=== PATIENT | female | born 1995 | race Caucasian/White ===

== ENCOUNTER → 2019-11-30 13:00 | Outpatient (BNVA) | payer MEDICAID, SELFPAY | PROVIDERS: Visit Provider Obstetrics & Gynecology | DX: Z32.01 Encounter for pregnancy test, result positive (principal) | CPT/HCPCS: 81025; 84702 ==

== ENCOUNTER 2020-03-22 22:56 | Inpatient (IN) | payer MEDICAID, SELFPAY ==
--- NOTE | 2020-03-22 23:04 | P.HP_ITS ---
Providers/Chief Complaint Admitting Physician: Quincy Pyle MD Primary SURVEY RESEARCH TEACHER: None Primary Care Provider: None Chief Complaint: post /delivered HPI SURVEY RESEARCH TEACHER History of Present Illness Viki Gill is a 24 year old female 3 para 2-0-0-2 with an unknown gestational age but felt to be approximately term based on a 28-week ultrasound for the patient. The patient had lived in [place], then [place], in [facility], and again in [place] during her . She states that she has had no problems during her . Around noon today, she began having contractions and waited for to come home to go to the hospital in [place]. Once in the hospital, she was found to be 6 cm dilated percent effaced. She then quickly progressed to complete and delivered in the hospital. She is and transported to our facility for definitive care. The bleeding was mild in the hospital. The physician did not do an exam to check for lacerations. The baby appeared to be healthy and term. Apgars were 9 and 9. Weight was not obtained on the baby. Their transport per EMS was unremarkable. Review of Systems General: Reports: 10 or more systems reviewed and unremarkable except in HPI and below Const: Reports: fatigue; Denies: fever(s) Eyes: Denies: change in vision Card: Denies: chest pain GI: Reports: heartburn Musc: Reports: back pain Juan Carlos/Lymph: Denies: easy bruising Medications/Allergies Allergies Allergy/AdvReac Type Severity Reaction Status Date / Time Sulfa (Sulfonamide Allergy ALGY-Swell Verified 11/30/19 15:27 Antibiotics) Lip/Tongue/Throat amoxicillin AdvReac ADR-Vomitin Verified 11/30/19 15:27 g PFSH SURVEY RESEARCH TEACHER PFSH: Family History Denies family history of Colon cancer Ovarian cancer Diabetes Heart disease Breast cancer Bleeding disorder Hypertension Uterine cancer Thyroid disease Stroke Social History (Updated 12/09/19 @ 12:40 by Mariel Grayson) Additional social history: - Tobacco use: Alcohol use: Drug use: Physical Exam Const: COMMON NORMALS: patient oriented x3 and alert HENMT: COMMON NORMALS: moist oral mucous membranes HEAD & SCALP: normal to inspection Chest: COMMONS NORMALS: normal inspection of the chest (Baby was breast- feeding on her left breast on arrival at the hospital) Resp: COMMON NORMALS: clear to auscultation bilaterally AUSCULTATION: clear to auscultation bilaterally Cardio: COMMON NORMALS: regular rate and regular rhythm RATE: regular rate RHYTHM: regular rhythm GI: INSPECTION: Yes normal to inspection and Yes other (Gravid) Extremity: COMMON NORMALS: normal to inspection GENERAL: Yes edema (Trace) Neuro: COMMON NORMALS: patient oriented x3, moves all extremities and no sensory deficits noted SENSORIUM/ORIENTATION: Yes alert Psych: COMMON NORMALS: mental status grossly normal Skin: COMMON NORMALS: no rashes or lesions noted GENERAL SKIN EXAM: no rashes or lesions noted A&P Assessment and plan (1) Term : Status: Acute (2) care insufficient: Status: Acute (3) Status post vaginal delivery: At this time the patient appears to be doing very well. We will do a full panel on her. If she continues to do well, I anticipate she will build to be discharged home in the next 1 to 2 days. Status: Acute Attestations Medical Necessity Statement*: Routine care Coding Level of Care Code Acute Supervisor Lump Room for Chg Fwd Diagnoses Term Z34.90 care insufficient O09.30 Status post vaginal delivery
[2020-03-22 23:40] VITALS: BP 113/71; PULSE 78; RESP 16; TEMP 36.8
[2020-03-23] MEDS: HYDROcodone-acetaminophen 5-325 mg Tablet PO (00:02)
[2020-03-23 00:19] VITALS: BP 112/70; PULSE 73; RESP 16; TEMP 36.9
[2020-03-23 01:36] LABS: Hepatitis B Surface Antigen Non-Reactive (Nonreactive)
[2020-03-23 01:36] LABS: Amphetamines Screen Urine Negative (Negative); Barbiturates Screen Urine Negative (Negative); Benzodiazepines Screen Urine Negative (Negative); Cocaine Screen Urine Negative (Negative); Opiate Screen Urine Negative (Negative); PCP Screen Urine Negative (Negative); THC Screen Urine Negative (Negative)
[2020-03-23 01:37] LABS: Rubella IgG 55.3 IU/mL (0.0-10.0)
[2020-03-23 01:39] LABS: HIV 1 & 2 Antibody Non-Reactive (Non-Reactiv); HIV 1 & 2 Antigen Non-Reactive (Non-Reactiv)
[2020-03-23 01:40] LABS: Rapid Plasma Reagin Syphilis Nonreactive (Nonreactive)
[2020-03-23 04:35] VITALS: BP 100/63; PULSE 103; RESP 17; TEMP 37.1
--- NOTE | 2020-03-23 07:26 | PM.OBGYPN ---
ANESTHESIOLOGIST ATTENDING Subjective Subjective: Interval history: The patient has had an unremarkable night. Her bleeding has been minimal. She has breast-fed well. Her pain is well controlled. There have been no concerns. Vitals/I&O/Wt Last Vital Signs Temp 98.7 F 03/23/20 04:35 Pulse 103 H 03/23/20 04:35 Resp 17 03/23/20 04:35 BP 100/63 03/23/20 04:35 03/22/20 03/23/20 03/23/20 22:59 06:59 14:59 Output Total 1800 / 1800 Balance -1800 / -1800 Physical Exam Narrative: EXAM NARRATIVE: The patient is alert. She appears comfortable. Her heart has a regular rate and rhythm with no murmurs appreciated. Lungs are clear to auscultation bilaterally. Her fundus is firm and below the umbilicus. Data Other Labs: Her drug screen was negative. Her RPR was nonreactive. Her hepatitis B antigen was nonreactive. Her HIV antibody was nonreactive. Rubella status was 55.3 Attestations Medical Necessity Statement*: Routine care. This patient be discharged home tomorrow morning Coding Level of Care Code Acute Driving Teacher for Brooklyn Trammell
[2020-03-23 07:37] LABS: Hemoglobin 9.9 g/dL (11.5-15.3); Mean Corpuscular HGB Conc 30.9 g/dL (30.0-36.0); Mean Corpuscular Hemoglobin 29.8 pg (28.0-34.0); Mean Corpuscular Volume 96.4 fL (81-99); Mean Platelet Volume 11.3 fL (7.4-10.4); Platelet Count 186 10^3/cmm (130-400); Red Blood Count 3.32 10^6/uL (4.1-5.3); White Blood Count 13.6 10^3/uL (4.0-10.0)
[2020-03-23] MEDS: docusate sodium 100 mg Capsule PO (08:36)
[2020-03-23] MEDS: prenatal vitamin Capsule 1 CAP PO (08:36)
[2020-03-23] MEDS: ibuprofen 800 mg tablet PO ×2 (08:36→20:33)
[2020-03-23 09:37] VITALS: BP 118/77; PULSE 91; RESP 16; TEMP 36.8
[2020-03-23 13:14] VITALS: BP 98/68; PULSE 86; RESP 17; TEMP 36.7
[2020-03-23 16:28] VITALS: BP 123/78; PULSE 81; RESP 16; TEMP 36.6
[2020-03-23 23:17] VITALS: BP 111/72; PULSE 86; RESP 16; TEMP 36.6; O2SAT 98
[2020-03-24 07:12] LABS: Hematocrit 31.6 % (37.0-47.0); Hemoglobin 9.9 g/dL (11.5-15.3); Mean Corpuscular HGB Conc 31.3 g/dL (30.0-36.0); Mean Corpuscular Hemoglobin 30.1 pg (28.0-34.0); Mean Platelet Volume 12.1 fL (7.4-10.4); Platelet Count 184 10^3/cmm (130-400); Red Blood Count 3.29 10^6/uL (4.1-5.3); White Blood Count 13.5 10^3/uL (4.0-10.0)
--- NOTE | 2020-03-24 08:22 | PC.NURSE ---
This mom's baby is not able to breastfeed at present. Reviewed expressing milk. She knows how to hand express and has used a breastpump in the past. Provided a hand pump, literature and help to get started. She said she could express on her own and at this time did not need my help. Since baby has not fed through the night I encouraged her to try to express as soon as possible.
[2020-03-24] MEDS: prenatal vitamin Capsule 1 CAP PO (09:21)
[2020-03-24] MEDS: docusate sodium 100 mg Capsule PO (09:21)
[2020-03-24] MEDS: ibuprofen 800 mg tablet PO (09:21)
[2020-03-24 09:51] VITALS: BP 104/78; PULSE 100; RESP 16; TEMP 36.7; O2SAT 98
--- NOTE | 2020-03-26 20:40 | P.DS_ITS ---
Discharge Providers EDUCATIONAL/DEVELOPMENT ASSISTANT Date of Admission: 03/22/20 22:56 Date of Discharge: 03/26/20 Attending Provider at Admission: Quincy Pyle MD Attending Provider at Discharge: Quincy Pyle MD Diagnoses at Discharge Discharge Diagnosis (1) Term : Status: Acute (2) care insufficient: Status: Acute (3) Status post vaginal delivery: Status: Acute Reason for Visit Reason for Visit: post /delivered Hospital Course Hospital Course The patient is a 24-year-old 3 patient who presented to the hospital via ambulance from [facility] in [place] after having an unremarkable delivery of a healthy appearing male infant. She had had almost no care as mentioned earlier. During her hospital stay there were no problems. Her bleeding was within normal limits. Her pain was well controlled. She breast-fed without difficulty. Unfortunately on the final day of the hospital stay it was determined that her infant need to be transferred to another facility for optimal care. As result she wanted to go home immediately. And I discharged her home. Physical Exam Narrative: EXAM NARRATIVE: This exam is from the day prior to discharge as the patient desired to be discharged immediately, and I was unavailable to come to the hospital immediately. The patient is alert. She appears comfortable. Her heart has a regular rate and rhythm with no murmurs appreciated. Lungs are clear to auscultation bilaterally. Her fundus is firm and below the umbilicus. Discharge Data Data Completed and Pending: Pending at discharge Category Date Time Status Miscellaneous Jessica t Stat Lab 03/23/20 00:45 Received Addt'l Data from Hospital Stay: Prior to discharge the patient's white blood count was 13.5 with a hemoglobin of 9.9 and a platelet count of 184. Her drug screen was negative. Her RPR, hepatitis B, HIV, rubella were all within normal limits. Vitals: Last Vital Signs Temp 98.0 F 03/24/20 09:51 Pulse 100 03/24/20 09:51 Resp 16 03/24/20 09:51 BP 104/78 03/24/20 09:51 Pulse Ox 98 03/24/20 09:51 Discharge Plan Discharge Patient Disposition: Home Prescriptions: No Action No Known Home Medications RF: 0 Discharge Orders: Discharge Order (Routine); Ordered 03/24/20 Ordered By: Quincy Pyle Referrals: Quincy Pyle MD [Physician] - 05/04/20 1:15 pm (* Your 6 week follow up is with Dr. Pyle on May 04 at 1:15pm. ) Discharge Diet: Regular Discharge Activity: Limit activity as instructed Patient Instructions: Vaginal Delivery (DC), Pre-eclampsia and Eclampsia (DC), Bleeding (DC), OB Discharge Report, OB Food/Drug Interaction Guide, OB Home Care, OB Proud Parent Packet Discharge Attestations EDUCATIONAL/DEVELOPMENT ASSISTANT Time Spent in Discharge Care*: less than 30 min (I discussed discharge information the day prior to discharge) Specific Discharge Activities: Specific discharge activities: educating patient Coding Level of Care Code Acute Casualty Insurance Claim Adjuster for Chg Fwd Diagnoses Term Z34.90 care insufficient O09.30 Status post vaginal delivery
== END 2020-03-24 10:34 | disposition home or self-care (01) | DRG 776 ==
LOC: OPOB 22:56 → OBGYN 22:56
PROVIDERS: Admitting Provider Family Medicine; Visit Provider Family Medicine
DX: Z39.0 Encounter for care and examination of mother immediately after delivery (principal)
CPT/HCPCS: 12345; 36415; 80306; 85027; 86592; 86762; 86850; 86900; 87340; 87491; 87591; 87806

== ENCOUNTER 2021-07-28 12:58 | Outpatient (CLI) | payer MEDICAID, SELFPAY ==
--- NOTE | 2021-07-28 13:07 | MR_ITS ---
WS: [id number] MRI BRAIN WITHOUT CONTRAST HISTORY: NON INTRACTABLE HEADACHE COMPARISON: None available. TECHNIQUE: Diffusion imaging, multiplanar T1, T2 and FLAIR imaging obtained. Patient denied IV contra st. No evidence for acute infarct or hemorrhage. Mejia-white matter differentiation is normal. No remote or acute infarcts are volume loss. Asymmetric ventricles with the RIGHT ventricle being larger is a normal variant. No inferior displacement of cerebellar tonsils. The sella turcica and pituitary gland are unremarkabl e. Dural venous sinuses and [place] demonstrate no abnormality on this unenhanced studies. Paranasal sinuses: Clear. Mastoid air cells: Normal. Calvarium and scalp: Intact. MR/MR head wo con* [id number] IMPRESSION: 1. Normal brain. 2. No postcontrast imaging performed at the patient's request.
== END 2021-07-28 12:59 | disposition home or self-care (01) ==
PROVIDERS: Visit Provider Nurse Practitioner Family
DX: R51.9 Headache, unspecified (principal)
CPT/HCPCS: 70551

== ENCOUNTER → 2022-02-20 10:00 | Outpatient (BNVA) | payer MEDICAID, SELFPAY | PROVIDERS: Visit Provider Nurse Practitioner Women's Health | DX: N92.6 Irregular menstruation, unspecified (principal) | CPT/HCPCS: 81000; 81025 ==

== ENCOUNTER → 2022-03-15 11:50 | Outpatient (BNVA) | payer MEDICAID, SELFPAY | PROVIDERS: Visit Provider Nurse Practitioner Women's Health | DX: Z34.91 Encounter for supervision of normal pregnancy, unspecified, first trimester (principal); Z3A.12 12 weeks gestation of pregnancy | CPT/HCPCS: 76801 ==

== ENCOUNTER → 2022-03-26 15:50 | Outpatient (BNVA) | payer MEDICAID, SELFPAY | PROVIDERS: Visit Provider Obstetrics & Gynecology | DX: Z34.80 Encounter for supervision of other normal pregnancy, unspecified trimester (principal); O09.299 Supervision of pregnancy with other poor reproductive or obstetric history, unspecified trimester; Z86.32 Personal history of gestational diabetes; I49.8 Other specified cardiac arrhythmias | CPT/HCPCS: 80307; 81003; 85027; 86762; 86803; 86850; 86900; 87086; 87340; 87491; 87591; 87661; 87806; 88175 ==

== ENCOUNTER → 2022-04-19 13:25 | Outpatient (BNVA) | payer MEDICAID, SELFPAY | PROVIDERS: Visit Provider Nurse Practitioner Women's Health | DX: Z34.80 Encounter for supervision of other normal pregnancy, unspecified trimester (principal) | CPT/HCPCS: 81000; 82950 ==

== ENCOUNTER → 2022-04-20 14:46 | Outpatient (BNVA) | payer MEDICAID, SELFPAY | PROVIDERS: Visit Provider Nurse Practitioner Women's Health | DX: Z34.80 Encounter for supervision of other normal pregnancy, unspecified trimester (principal) | CPT/HCPCS: 82105; 86592 ==

== ENCOUNTER → 2022-05-23 14:15 | Outpatient (BNVA) | payer MEDICAID, SELFPAY | PROVIDERS: Visit Provider Obstetrics & Gynecology | DX: Z34.92 Encounter for supervision of normal pregnancy, unspecified, second trimester (principal); Z3A.21 21 weeks gestation of pregnancy | CPT/HCPCS: 76805 ==

== ENCOUNTER → 2022-07-27 13:50 | Outpatient (BNVA) | payer MEDICAID, SELFPAY | PROVIDERS: Visit Provider Obstetrics & Gynecology | DX: Z34.80 Encounter for supervision of other normal pregnancy, unspecified trimester (principal); Z3A.00 Weeks of gestation of pregnancy not specified | CPT/HCPCS: 81000 ==

== ENCOUNTER 2022-08-17 11:05 | Outpatient (CLI) | payer MEDICAID, SELFPAY ==
--- NOTE | 2022-08-17 12:45 | US_ITS ---
WS: [id number] LIMITED OBSTETRICAL ULTRASOUND HISTORY: Z34.80 - Encounter for supervision of other normal , growth. COMPARISON: 03/15/2022 a nd 05/23/2022 Presentation: Vertex. Cervix: Closed and normal length. Placenta: Anterior, no previa or abruption. Grade: 2 HEART: FHR of 138 BPM. measurements: BPD = 8.6 cm = 34w6d; 73rd percentile HC = 31.4 cm = 35w2d; 45th percentile AC = 29.2 cm = 33w1d; 30th percentile FL = 6.5 cm = 33w3d; 26th percentile Normal visualized pockets of amniotic fluid. EFW: 2239 g; 52nd percentile AGA by ultrasound: 34w1d REINA by ultrasound: 09/27/2022 US/US OB limited 14181 IMPRESSION: 1. Single intrauterine gestation of 34 weeks 1 day with an EDC of 09/27/2022. 2. Appropriate growth since the first trimester ultrasound of 03/15/2022. 3. No growth asymmetry. 4. weight at the 52nd percentile for age.
== END 2022-08-17 11:06 | disposition home or self-care (01) ==
LOC: RAD 11:11
PROVIDERS: Visit Provider Obstetrics & Gynecology
DX: Z34.80 Encounter for supervision of other normal pregnancy, unspecified trimester (principal)
CPT/HCPCS: 76815; 80307; 81000; 85025; 86850

== ENCOUNTER 2022-08-24 10:43 | Outpatient (CLI) | payer MEDICAID, SELFPAY ==
[2022-08-24] VITALS (13 sets, daily range): BP systolic 96–103; BP diastolic 59–66; PULSE 93–114; O2SAT 98–99; BMI 22.2
--- NOTE | 2022-08-24 11:04 | US_ITS ---
WS: [id number] BIOPHYSICAL PROFILE AMNIOTIC FLUID HISTORY: Syncope episodes COMPARISON: 08/17/2022 position: Vertex. Cardiac activity: 120 bpm. Cervix: Obscured by the head. Placenta: Anterior, no previa or abruption. Placenta grade: 2 Parameters are as follows: Breathin Movement: 2 Tone: 2 Fluid volume: 2 Amniotic Fluid Index: 17.5 cm. US/US OB BPP wo NST 14714 IMPRESSION: 1. Biophysical profile score: 8/8. 2. Normal cardiac activity.
[2022-08-24 11:34] LABS: Basophils # 0.1 10^3/uL (0.0-0.1); Basophils % 0.5 %; Eosinophils # 0.2 10^3/uL (0.0-0.8); Eosinophils % 1.8 %; Hematocrit 28.3 % (37.0-47.0); Lymphocytes % 19.6 %; Mean Corpuscular HGB Conc 31.8 g/dL (30.0-36.0); Mean Corpuscular Hemoglobin 29.5 pg (28.0-34.0); Mean Corpuscular Volume 92.8 fl (81-99); Mean Platelet Volume 10.2 fL (7.4-10.4); Monocytes # 0.8 10^3/uL (0.2-0.9); Monocytes % 7.6 %; Neutrophils # 7.13 10^3/uL (1.8-7.7); Neutrophils % 69.4 %; Nucleated Red Blood Cells % 0 %; Platelet Count 239 10^3/cmm (130-400); Red Blood Count 3.05 10^6/uL (4.1-5.3); Red Cell Distribution Width 13.3 % (12.1-15.1); White Blood Count 10.3 10^3/uL (4.0-10.0)
--- NOTE | 2022-08-24 11:57 | ECG_ITS ---
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 Measurements Intervals [place] Rate: 101 P: 50 HI: 112 QRS: 45 QRSD: 84 T: 33 QT: 324 QTc: 420 Interpretive Statements SINUS TACHYCARDIA WITH SHORT HI INTERVAL ABNORMAL RHYTHM ECG No previous ECG available for comparison Electronically Signed On 08-24-2022 12:17:26 CDT by Ignacio Matamoros M.D. [id number]
[2022-08-24 12:34] LABS: Ferritin 8 ng/mL (15-150); Iron 76 ug/dL (37-145); Percent Saturation 19.2 % (20-50); Total Iron Binding Capacity 395 mcg/dl; Unsaturated Iron Binding 319 ug/dL (112-347)
== END 2022-08-24 13:30 | disposition home or self-care (01) ==
LOC: OPOB 10:51 → OBGYN 10:52
PROVIDERS: Visit Provider Obstetrics & Gynecology
DX: O26.899 Other specified pregnancy related conditions, unspecified trimester (principal); R55 Syncope and collapse; R00.0 Tachycardia, unspecified; Z3A.00 Weeks of gestation of pregnancy not specified
CPT/HCPCS: 36415; 59025; 76819; 81000; 82728; 83540; 83550; 85025; 93005; 99211

== ENCOUNTER 2022-09-02 19:19 | Outpatient (CLI) | payer MEDICAID, SELFPAY ==
[2022-09-02] VITALS (11 sets, daily range): BP systolic 101–119; BP diastolic 57–76; PULSE 76–91; RESP 16–17; TEMP 35.8–36.1; BMI 23.4
[2022-09-02 20:23] LABS: Nitrazine Paper, PH Negative
== END 2022-09-02 22:04 | disposition home or self-care (01) ==
LOC: OPOB 19:20 → OBGYN 19:21
PROVIDERS: Visit Provider Obstetrics & Gynecology
DX: O26.893 Other specified pregnancy related conditions, third trimester (principal); G90.A Postural orthostatic tachycardia syndrome [POTS]; Z3A.36 36 weeks gestation of pregnancy
CPT/HCPCS: 59025; 83986; 99211

== ENCOUNTER 2022-09-04 19:36 | Outpatient (CLI) | payer MEDICAID, SELFPAY ==
[2022-09-04] VITALS (18 sets, daily range): BP systolic 82–110; BP diastolic 43–70; PULSE 78–114; RESP 16; TEMP 36.2–36.4; BMI 22.6
[2022-09-04 20:52] LABS: Basophils % 0.3 %; Eosinophils # 0.2 10^3/uL (0.0-0.8); Eosinophils % 2.3 %; Hematocrit 27.2 % (37.0-47.0); Hemoglobin 8.6 g/dL (11.5-15.3); Lymphocytes # 2.7 10^3/uL (0.8-4.8); Lymphocytes % 26.8 %; Mean Corpuscular HGB Conc 31.6 g/dL (30.0-36.0); Mean Corpuscular Volume 91.6 fl (81-99); Mean Platelet Volume 10.5 fL (7.4-10.4); Monocytes # 0.8 10^3/uL (0.2-0.9); Monocytes % 7.7 %; Neutrophils # 6.35 10^3/uL (1.8-7.7); Neutrophils % 62.2 %; Nucleated Red Blood Cells % 0 %; Platelet Count 230 10^3/cmm (130-400); Red Blood Count 2.97 10^6/uL (4.1-5.3); Red Cell Distribution Width 13.6 % (12.1-15.1); White Blood Count 10.2 10^3/uL (4.0-10.0)
[2022-09-04 21:09] LABS: Alanine Aminotransferase < 5 U/L (0-33); Albumin Level 3.4 g/dL (3.5-5.2); Alkaline Phosphatase 129 U/L (35-105); Anion Gap 14.7 (5-19); Aspartate Amino Transferase 10 U/L (0-32); Blood Urea Nitrogen 5 mg/dL (6-20); Calcium 8.7 mg/dL (8.5-10.5); Carbon Dioxide 23 mmol/L (22-29); Chloride 100 mmol/L (98-107); Globulin 2.6 g/dL (1.3-4.6); Glomerular Filtration Rate 268.9 mL/min (90-130); Glucose 100 mg/dL (65-115); Osmolality Calculated 275 mOsm/kg (285-295); Potassium 3.7 mmol/L (3.5-5.1); Sodium 134 mmol/L (136-145); Total Bilirubin 0.2 mg/dL (0.15-1.2)
[2022-09-04] MEDS: lactated ringers 1,000 ML 999 ML IV (21:45)
--- NOTE | 2022-09-04 22:52 | P.PN_ITS ---
Subjective Subjective: called to see patient. The patients partner requests to speak with a physician. Labs show that the patient is profoundly anemic. her partner states that she is having an increase in episodes of loss of consciousness. I explained that being anemic can also cause these same symptoms. i recommended that she receive a venofer infusion tonight, tomorrow and again on . Initially, she refu sed. We discussed that we can infuse over a longer time and the iron should make her feel better. She has agreed to have the infusion. Vitals/I&O/Wt Last Vital Signs Temp 97.5 F L 09/04/22 20:46 Pulse 93 09/04/22 22:40 Resp 16 09/04/22 20:42 BP 100/59 09/04/22 22:40 Weight last 48 hrs Weight 116 lb Data 09/04/22 20:44 09/04/22 20:44 A&P Assessment and plan (1) Anemia affecting in third trimester: 200 mg of venofer infusion today repeat the next two-three days Attestations Medical Necessity Statement*: The patient will be going home, 30 minutes post infusion Coding Level of Care Code Acute Code for Chg Fwd Diagnoses Anemia affecting in third trimester O99.013
[2022-09-04] MEDS: iron sucrose 200 MG in sodium chloride 0.9% (100 ml) 100 ML 220 MG IV (22:57)
[2022-09-05 00:13] VITALS: BP 84/47; PULSE 83
[2022-09-05 00:26] VITALS: BP 84/48; PULSE 86
[2022-09-05 00:43] VITALS: BP 112/55; PULSE 88
[2022-09-05 01:06] VITALS: RESP 16
== END 2022-09-05 01:25 | disposition home or self-care (01) ==
LOC: OPOB 19:46 → OBGYN 19:48
PROVIDERS: Visit Provider Obstetrics & Gynecology
DX: O26.893 Other specified pregnancy related conditions, third trimester (principal); G90.A Postural orthostatic tachycardia syndrome [POTS]; O99.013 Anemia complicating pregnancy, third trimester; D50.9 Iron deficiency anemia, unspecified; Z3A.36 36 weeks gestation of pregnancy
CPT/HCPCS: 36415; 59025; 80053; 81000; 85025; 87081; 99211; G0378; J1756; J7120

== ENCOUNTER 2022-09-05 16:30 | Outpatient (CLI) | payer MEDICAID, SELFPAY ==
[2022-09-05 16:30] VITALS: BMI 22.6
[2022-09-05 16:59] VITALS: BP 112/64; PULSE 102
[2022-09-05] MEDS: iron sucrose 200 MG in sodium chloride 0.9% (100 ml) 100 ML 70 MG IV (19:05)
[2022-09-05 19:09] VITALS: BP 106/63; PULSE 97; TEMP 36.3
[2022-09-05 19:47] VITALS: BP 114/58; PULSE 90
[2022-09-05 20:38] VITALS: BP 111/55; PULSE 88
[2022-09-05 22:15] VITALS: BP 99/54; PULSE 82; TEMP 36.1
[2022-09-06] VITALS (55 sets, daily range): BP systolic 96–112; BP diastolic 50–64; PULSE 75–103; RESP 15–16; TEMP 36–36.9; O2SAT 96–99
--- NOTE | 2022-09-06 07:17 | PC.NURSE ---
This card writer hand entered pt room to answer call light. Upon entering pt is lying in bed watching TV and pt significant other is sitting upon couch. This card writer hand stated, good morning, is there something I can do for you? The pt significant other replies, The nurse told us to push the button every time she blacks out. This card writer hand placed a blood pressure cuff on pt and took her BP. Her BP was 106/58 and her pulse was 93. This card writer hand asked what happened? Pt significant other reports, I don't know, I just woke up and looked over and she was out. This card writer hand asked pt what happened? Pt replied, I have POTS. This card writer hand further questioned pt and asked, did you get up and get dizzy? Pt replied, I got up to bathroom around six, but I've just been laying here since. Discussed with pt that her primary nurse CLINTON Lindsey would be notified.
--- NOTE | 2022-09-06 10:14 | PC.NURSE ---
Steve ARMENDARIZ AND DR. PRIDE HERE AND IN TALKING WITH PATIENT.
--- NOTE | 2022-09-06 13:17 | PM.CONSULT ---
Providers/Reason For Consult Consulting Physician/Specialty*: Larry Bernard MD Reason for Consult*: Syncope Requesting Physician: Dr. Ayala Attending Physician: Sandi Moya MD History of Present Illness History of Present Illness Viki Gill is a 27 year old female I have been asked to see in regards to her episodes of unresponsiveness. , is present during the interview. Patient reports she has had intermittent episodes of unconsciousness since she was 11 years of age. These have been more frequent lately, very frequent with this . With the previous 3 pregnancies, episodes would improve following delivery. At 19 years of age she was diagnosed with POTS. She is also been told that these episodes may represent a functional disorder. She reports that position changes do not always induce an episode. They can be induced by hitting her elbow or foot. She reports loss of consciousness ranging from seconds to perhaps a minute. Her relates that as she comes to she shakes slightly, and is slightly confused for at least several minutes. Patient reports her head pounds a little bit after an episode. He has never broken any bones during an episode, but does report she has hit her head several times causing injury. She states in the past she has had some warning that an episode will occur, with a feeling of spinning or dizziness occurring seconds prior to an episode so she can sit or lay down to try to prevent injury. She states lately she has no warning. She has been told before secondary to her condition to drink lots of water, increase salt intake. This has not been effective lately. While in OB she has received some IV fluids. She has received at least 2 iron infusions. She has been told she has gestational diabetes, with each of her pregnancies. She does smoke. MRI in July 2021 that was normal. Review of Systems General: Reports: 10 or more systems reviewed and unremarkable except in HPI and below Card: Reports: syncope Resp: Denies: dyspnea Medications/Allergies Home Medications Medication Instructions Recorded Confirmed Last Taken Type PNV 158-iron 13.5 mg-folic 0.5 1 cap PO DAILY 03/26/22 09/04/22 09/04/22 History mg-omega 3-dha 150 mg-epa-fish capsule (Natavi PNV) Allergies Allergy/AdvReac Type Severity Reaction Status Date / Time amoxicillin Allergy ADR-Vomitin Verified 09/02/22 20:18 g Sulfa (Sulfonamide Allergy ALGY-Swell Verified 09/02/22 20:18 Antibiotics) Lip/Tongue/Throat PFSH Acute PFSH: Medical History No pertinent past medical history neghx: htn,dm,thyroid,dvt/pe PCP: None POTS (postural orthostatic tachycardia syndrome) Surgical History H/O dilation and curettage (~2018) retained placenta--[place] Family History Grandmother Diabetes Maternal Hypertension Maternal Sister Thyroid disease Denies family history of Colon cancer Ovarian cancer Heart disease Breast cancer Bleeding disorder Uterine cancer Stroke Social History (Updated 09/06/22 @ 13:24 by Larry Bernard MD) Smoking and tobacco status: current every day smoker Alcohol intake: never Female Reproductive History: : 5 Vitals/I&O/Wt Last Vital Signs Temp 97.9 F 09/06/22 08:57 Pulse 99 09/06/22 08:58 Resp 16 09/06/22 06:00 BP 106/60 09/06/22 08:58 Weight last 48 hrs Weight 52.617 kg Physical Exam Narrative: General exam is no distress Head atraumatic, normocephalic, pupils equally round Neck is supple no lymphadenopathy thyromegaly Cardiovascular regular rate and rhythm, no murmur Lungs clear Abdomen gravid, otherwise deferred deferred Extremities no cyanosis clubbing edema, cap refill brisk Skin no rash Neuro no obvious focal deficits Data Other Labs: On September 04, white blood cell count 10.2, hemoglobin 8.6, platelet count 230,000 CMP reviewed and largely normal. Albumin is 3.4 Urinalysis negative I do not see evidence of a TSH in her blood work. EKG demonstrates a heart rate of 101, normal axis, otherwise normal A&P Assessment and plan (1) Syncope: Patient reports a history of syncope, occurring since 11 years of age. confirms. They reports she has been diagnosed with POTS syndrome in the past, as a cause for the syncope. 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 reports this condition has improved with delivery and her last pregnancies. I encouraged her to hydrate, have a nonrestricted salt intake. A TSH is indicated which I have ordered Orthostatic blood pressures have been ordered to look for orthostatic hypotension Given her history, I cannot comment regarding need for delivery acutely. I do not believe any other nefarious cause of syncope is occurring. I certainly cannot guarantee that further episodes would not occur despite increasing fluid, and salt intake. I cannot guarantee her symptomatology would improve with delivery. Given 's concerns regarding potential injury with episode, during her current state and , I do believe bedrest is the safest suggestion that we could make at this point until delivery. The timing of delivery, is deferred to OB. Plan related anemia. She has been getting iron infusions. Thank you for this consultation Consult Attestations Medical Necessity Statement: As per primary Diagnoses Syncope R55 Time Spent (min) 76
[2022-09-06 13:56] LABS: Thyroid Stimulating Hormone 3.59 uIU/mL (0.27-4.20)
--- NOTE | 2022-09-06 21:36 | PC.NURSE ---
Pt complaint of throbbing pain in Rt arm at IV site during blood transfusion at 2114, transfusion slowed to 180 ml/hr and pt stated that pain resolved after. Pt denied other symptoms and instructed to hit call light and inform nurse if pain returns. At 2120 pt hit call light and complained of return of pain from IV site up into upper shoulder of Rt arm. Martina RN gave instructions to stop infusion, flush IV site and then restart transfusion at slower rate if IV site appears patent. Pt then stated pain resolved after interventions.
[2022-09-07] VITALS: RESP 16
--- NOTE | 2022-09-07 00:43 | PM.OBGYPN ---
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 EDC September 27, 2022 c/w 12-week sono At 37 w 0 d + active movements + occasional UCs No bleeding, fluid leakage c/o ?blackout episodes? has been occurring several times a day for many weeks patient and her describe episodes as sudden onset, can occur at any time and in any position patient would lose consciousness even when sitting, knocking her head on table; state these blackouts only happen when she is patient is at home alone with young children while is working, and they are worried that she may pass out while alone They attribute these episodes to patient?s past diagnosis of postural orthostatic tachycardia syndrome However, patient does not recall who gave her the diagnosis and does not know what tests were done to arrive at that diagnosis No headaches, palpitations, chest pain, shortness of breath + dizziness Patient and her insist on labor induction to avoid passing out at home Labor: Amniotic Membrane Status: Intact Monitor Mode: External Contraction Pattern: Occasional Vitals/I&O/Wt Last Vital Signs Temp 96.8 F L 09/06/22 23:53 Pulse 76 09/06/22 23:53 Resp 16 09/06/22 22:48 BP 105/55 09/06/22 23:53 Pulse Ox 98 09/06/22 23:53 O2 Del Method Room Air 09/06/22 21:21 09/06/22 09/06/22 09/07/22 14:59 22:59 06:59 Intake Total 0 / 0 Balance 0 / 0 Weight last 48 hrs Weight 116 lb Physical Exam Narrative: VS normal Patient alert, oriented HEENT: normal Lungs: clear Cor: RRR Abd: soft Ext: no edema External monitor: No UCs heart tracing good variability, + accelerations A&P Assessment and plan (1) Supervision of other normal : 37 w 0 d Fetus reassuring (2) Syncope: Syncopal episodes Clinical history not c/w any medical / obstetric explanation for syncopal episodes Not c/w POTS This was explained to patient and her . Explained that I do not recommend labor induction at this time. Patient?s is very insistent re labor induction, states he is afraid she would pass out without warning and pose a real danger to herself and their children. Patient has been getting iron infusions for anemia Plan request medicine consultation re syncopal episodes Attestations Medical Necessity Statement*: 37 weeks gestation; syncopal episodes Coding Level of Care Code Acute Code for Chg Fwd Diagnoses Supervision of other normal Z34.80 Syncope R55 Time Spent (min) 60
--- NOTE | 2022-09-07 00:50 | PM.OBGYPN ---
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 re labor induction vs. discharge Labor: Amniotic Membrane Status: Intact Monitor Mode: External Contraction Pattern: Occasional Vitals/I&O/Wt Last Vital Signs Temp 96.8 F L 09/06/22 23:53 Pulse 76 09/06/22 23:53 Resp 16 09/06/22 22:48 BP 105/55 09/06/22 23:53 Pulse Ox 98 09/06/22 23:53 O2 Del Method Room Air 09/06/22 21:21 09/06/22 09/06/22 09/07/22 14:59 22:59 06:59 Intake Total 0 / 0 Balance 0 / 0 Weight last 48 hrs Weight 116 lb A&P Assessment and plan (1) Supervision of other normal : (2) Syncope: (3) Anemia affecting in third trimester: plan transfuse one unit of PRBCs plan recheck Hgb tomorrow a.m. Attestations Medical Necessity Statement*: patient at 37 weeks with anemia and syncope Coding Level of Care Code Acute Code for Chg Fwd Diagnoses Supervision of other normal Z34.80 Syncope R55 Anemia affecting in third trimester O99.013 Time Spent (min) 45
[2022-09-07 04:10] VITALS: BP 116/67; PULSE 91
[2022-09-07] MEDS: calcium carbonate 500 mg Chew Tablet 1000 MG PO (04:14)
[2022-09-07 04:18] VITALS: TEMP 36.7
[2022-09-07 06:27] LABS: Hematocrit 29.6 % (37.0-47.0); Hemoglobin 9.5 g/dL (11.5-15.3); Mean Corpuscular HGB Conc 32.1 g/dL (30.0-36.0); Mean Corpuscular Hemoglobin 29.5 pg (28.0-34.0); Mean Corpuscular Volume 91.9 fl (81-99); Mean Platelet Volume 10.5 fL (7.4-10.4); Platelet Count 232 10^3/cmm (130-400); Red Blood Count 3.22 10^6/uL (4.1-5.3); Red Cell Distribution Width 13.8 % (12.1-15.1); White Blood Count 10.3 10^3/uL (4.0-10.0)
[2022-09-07 12:40] VITALS: BP 114/67; PULSE 84
[2022-09-07 13:00] VITALS: BP 114/67; PULSE 84; RESP 15; TEMP 36.9
--- NOTE | 2022-09-07 23:27 | PM.OBGYPN ---
UNDERGRADUATE INTERN Subjective Subjective: Interval history: September 07, 2022, 1245 Patient with no c/o No dizziness or syncopal episodes while in hospital, nor was any witnessed by nursing staff Fetus reassuring Hgb this a.m. 9.5 Labor: Amniotic Membrane Status: Intact Monitor Mode: External Contraction Pattern: Occasional Vitals/I&O/Wt Last Vital Signs Temp 98.4 F 09/07/22 13:00 Pulse 84 09/07/22 13:00 Resp 15 09/07/22 13:00 BP 114/67 09/07/22 13:00 Pulse Ox 98 09/06/22 23:53 O2 Del Method Room Air 09/06/22 21:21 Data 09/07/22 06:13 A&P Assessment and plan (1) Supervision of other normal : 37 w 1 d Fetus reassuring Patient doing well. No ?blackouts? while in hospital. Anemia, s/p transfusion 1 U PRBCs Plan discharge home F/u next week in office Labor precautions (2) Syncope: (3) Anemia affecting in third trimester: Attestations Medical Necessity Statement*: patient at 37 w 1 d, with anemia and syncopal episodes. Plan discharge home today. Coding Level of Care Code Acute Code for Chg Fwd Diagnoses Supervision of other normal Z34.80 Syncope R55 Anemia affecting in third trimester O99.013 Time Spent (min) 30
--- NOTE | 2022-09-07 23:39 | P.DS_ITS ---
Discharge Providers PULLER MACHINE Date of Admission: September 06, 2022 Date of Discharge: 09/07/22 Attending Provider at Admission: Sandi Moya MD Attending Provider at Discharge: Ric Ayala MD Consults: Dr. Kaur, hospitalist Primary PULLER MACHINE: Vikas Dominguez MD Diagnoses at Discharge Discharge Diagnosis (1) Supervision of other normal : Details from hospital stay: 37 w 1 d fetus reassuring not in labor Status: Acute (2) Syncope: Details from hospital stay: no medical etiology for blackouts not related to self-reported history of POTS Status: Acute (3) Anemia affecting in third trimester: Details from hospital stay: patient received iron infusion and one unit of PRBCs discharge Hgb was 9.5 Status: Acute Reason for Visit Reason for Visit: iron infusion/ passing out Hospital Course Hospital Course patient did well in hospital there were no syncopal episodes in hospital Physical Exam Narrative: patient alert, oriented, appropriate VS normal HEENT: normal Lungs: clear Cor: RRR Abd: soft, nontender heart tracing good variability, + accelerations History History History 5 Term 3 0 Miscarriages/Ectopic 1 Living Children 3 Discharge Data Studies Completed and Pending Laboratory Results WBC 10.3 10^3/uL (4.0-10.0) H 09/07/22 06:13 RBC 3.22 10^6/uL (4.1-5.3) L 09/07/22 06:13 Hgb 9.5 g/dL (11.5-15.3) L 09/07/22 06:13 Hct 29.6 % (37.0-47.0) L 09/07/22 06:13 MCV 91.9 fl (81-99) 09/07/22 06:13 MCH 29.5 pg (28.0-34.0) 09/07/22 06:13 MCHC 32.1 g/dL (30.0-36.0) 09/07/22 06:13 RDW 13.8 % (12.1-15.1) 09/07/22 06:13 Plt Count 232 10^3/cmm (130-400) 09/07/22 06:13 MPV 10.5 fL (7.4-10.4) H 09/07/22 06:13 TSH 3.59 uIU/mL (0.27-4.20) 09/04/22 20:44 Blood Type A Negative 09/06/22 16:45 Rho(D) Type Negative 09/06/22 16:45 Antibody Screen Positive 09/06/22 16:45 Antibody Identification Anti-D 09/06/22 16:45 Crossmatch See Detail 09/06/22 16:45 Procedures Performed iron infusion transfusion of one U PRBCs Vitals Last Vital Signs Temp 98.4 F 09/07/22 13:00 Pulse 84 09/07/22 13:00 Resp 15 09/07/22 13:00 BP 114/67 09/07/22 13:00 Pulse Ox 98 09/06/22 23:53 O2 Del Method Room Air 09/06/22 21:21 Discharge Plan Discharge Patient Disposition: Home Prescriptions: No Action Natavi PNV 13.5 mg iron- 0.5 mg-150 mg capsule 1 cap PO DAILY Discharge Orders: Discharge Order (Routine); Ordered 09/07/22 Ordered By: Ric Ayala Referrals: Ric Ayala MD [Physician] - 09/14/22 3:45 pm Diet: Usual diet Activity: Limit activity as instructed and Bedrest Patient Instructions: Iron Rich Diet (GEN), Iron Deficiency Anemia (GEN), Early Labor Signs (GEN), Opioid Safety, OB Undelivered Discharge Activity Restrictions/Additional Instructions: Keep regular scheduled appt with Dr Ayala. If having regular painful contractions, leaking fluid like your water is broke, have any bright red bleeding like period bleeding or if baby is not moving 12 or more times in a 2 hr period come to the OB dept for further evaluation. Otherwise we will see you on Sat at 10:00pm for elective induction of labor to be started at 12:00am on the . Please call prior to coming to ensure we have an open bed available. For any questions or concerns at any time please call the OB dept directly at [phone]. Discharge Date/Time: 09/07/22 13:20 Discharge Attestations PULLER MACHINE Time Spent in Discharge Care*: greater than 30 min Coding Level of Care Code Acute Code for Chg Fwd Diagnoses Supervision of other normal Z34.80 Syncope R55 Anemia affecting in third trimester O99.013 Time Spent (min) 40
== END 2022-09-07 13:20 | disposition home or self-care (01) ==
LOC: OPOB 16:35 → OBGYN 09-06 12:42
PROVIDERS: Internal Medicine; Obstetrics & Gynecology; Visit Provider Obstetrics & Gynecology
DX: O99.013 Anemia complicating pregnancy, third trimester (principal); D64.9 Anemia, unspecified; Z3A.37 37 weeks gestation of pregnancy; R55 Syncope and collapse; O99.333 Smoking (tobacco) complicating pregnancy, third trimester; F17.200 Nicotine dependence, unspecified, uncomplicated
CPT/HCPCS: 36415; 36430; 59025; 80503; 84443; 85027; 86850; 86870; 86900; 86920; 99211; J1756; P9016

== ENCOUNTER 2022-09-20 06:57 | Inpatient (IN) | payer MEDICAID, SELFPAY ==
[2022-09-19 23:00] VITALS: TEMP 36.1
[2022-09-19 23:01] VITALS: BP 96/53; PULSE 98
[2022-09-19 23:37] VITALS: BMI 24.0
[2022-09-20] VITALS (23 sets, daily range): BP systolic 88–115; BP diastolic 48–75; PULSE 75–107; RESP 16; TEMP 36.3–36.7
[2022-09-20 03:25] LABS: Basophils # 0.1 10^3/uL (0.0-0.1); Basophils % 0.5 %; Eosinophils # 0.2 10^3/uL (0.0-0.8); Eosinophils % 1.9 %; Hematocrit 32.7 % (37.0-47.0); Hemoglobin 10.2 g/dL (11.5-15.3); Lymphocytes # 3.4 10^3/uL (0.8-4.8); Lymphocytes % 34.5 %; Mean Corpuscular HGB Conc 31.2 g/dL (30.0-36.0); Mean Corpuscular Hemoglobin 29.7 pg (28.0-34.0); Mean Corpuscular Volume 95.3 fl (81-99); Mean Platelet Volume 10.7 fL (7.4-10.4); Monocytes # 0.7 10^3/uL (0.2-0.9); Monocytes % 7.3 %; Neutrophils # 5.39 10^3/uL (1.8-7.7); Neutrophils % 54.3 %; Nucleated Red Blood Cells % 0 %; Platelet Count 179 10^3/cmm (130-400); Red Blood Count 3.43 10^6/uL (4.1-5.3); Red Cell Distribution Width 15.3 % (12.1-15.1); White Blood Count 9.9 10^3/uL (4.0-10.0)
[2022-09-20] MEDS: miSOPROStol 100 mcg tablet 25 MCG VAGINAL (03:34)
--- NOTE | 2022-09-20 08:51 | PM.OPHPUD ---
Labor & Delivery H&P Update Date of Procedure: September 20, 2022 Date H&P Performed: 09/04/22 H&P update information: I have reviewed H&P completed within last 30 days, I have examined patient prior to procedure and No changes to prior documentation Admission Diagnosis:
[2022-09-20] MEDS: lactated ringers 1,000 ML 999 ML IV (13:23)
[2022-09-20] MEDS: dextrose 5%-lactated ringers 1,000 ML 125 ML IV (22:47)
[2022-09-21] VITALS (36 sets, daily range): BP systolic 87–152; BP diastolic 50–82; PULSE 69–107; RESP 15–16; TEMP 36.4–36.8; O2SAT 85–100
[2022-09-21] MEDS: fentaNYL 50 mcg/mL INJ 2mL IVP ×2 (02:04→03:08)
[2022-09-21 03:39] LABS: Glucose Point of Care 115 mg/dL (70-110)
[2022-09-21] MEDS: lactated ringers 1,000 ML 999 ML IV (03:53)
--- NOTE | 2022-09-21 04:26 | PM.DELIVERY ---
Delivery Note: Date of delivery: September 21, 2022 Pre-delivery diagnoses: Term . Poor care. Noncompliant. Post-delivery diagnoses: Same as above Procedure: Spontaneous vaginal delivery Delivering Physician: Vikas Dominguez MD Estimated blood loss (mL): 300 Delivery: I was called by the nurse the patient was a centimeters in dilation 10 seconds later she called me she was 10 and had rupture membranes then 10 seconds later was called the patient had a precipitous vaginal delivery. Upon my arrival placenta was still in place. Then the patient was placed in the dorsal lithotomy position, prepped and draped in the usual sterile fashion for the placenta delivery. The placenta delivered intact spontaneously and the uterus was explored. 20 units of Pitocin was placed in the IV bag to firm the uterus. Examination of the cervix and vaginal vault did not reveal any lacerations. Examination of the perineum showed no lacerations. The vaginal pack was then removed. I was informed by the nurse and the at delivery with a nuchal cord x1 with an 6/9. weight 3200 g. The patient tolerated this procedure well, and recovered in L&D with her infant in the LDR room. All sponge and needle counts were correct. History History History 5 Term 3 0 Miscarriages/Ectopic 1 Living Children 3 Coding Level of Care Code Acute Code for Chg Fwd Diagnoses
[2022-09-21] MEDS: HYDROcodone-acetaminophen 5-325 mg Tablet PO ×3 (06:40→20:44)
[2022-09-21] MEDS: prenatal vitamin Capsule 1 CAP PO (08:55)
[2022-09-21] MEDS: ibuprofen 800 mg tablet PO ×2 (08:56→21:25)
[2022-09-21 18:50] LABS: Hematocrit 31.6 % (37.0-47.0); Hemoglobin 10.1 g/dL (11.5-15.3); Mean Corpuscular Hemoglobin 30.6 pg (28.0-34.0); Mean Corpuscular Volume 95.8 fl (81-99); Mean Platelet Volume 10.9 fL (7.4-10.4); Platelet Count 199 10^3/cmm (130-400); Red Cell Distribution Width 15.4 % (12.1-15.1); White Blood Count 14.5 10^3/uL (4.0-10.0)
[2022-09-22 04:00] VITALS: BP 112/67; PULSE 85; RESP 16; TEMP 36.6; TEMP 36.7
[2022-09-22] MEDS: HYDROcodone-acetaminophen 5-325 mg Tablet PO (05:32)
[2022-09-22] MEDS: prenatal vitamin Capsule 1 CAP PO (10:08)
[2022-09-22] MEDS: ibuprofen 800 mg tablet PO (10:08)
[2022-09-22] MEDS: docusate sodium 100 mg Capsule PO (10:08)
[2022-09-22 10:10] VITALS: BP 113/77; PULSE 83; RESP 15; TEMP 36.5
--- NOTE | 2022-09-22 10:56 | P.DS_ITS ---
Discharge Providers DIRECTOR OF IN SERVICE EDUCATION Date of Admission: 09/20/22 06:57 Date of Discharge: 09/22/22 Attending Provider at Admission: Vikas Dominguez MD Attending Provider at Discharge: Vikas Dominguez MD Primary Care Provider: Shanna Montano Reason for Visit Reason for Visit: induction Brief History: Ms. Gill is a 27 year old established patient with LMP of 12/21/2021 (guess), REINA 09/27/2022 based on 12 week ultrasound, placing her at 39 weeks. Came in for elective induction. Prenetal care was poor as patient was not compliance with visits. complicated by anemia and past [facility] history of undocumented POTS. Hospital Course Hospital Course Mrs. Gill 27-year-old female G5, P3 admitted for elective induction at 39 weeks. She was given misoprostol for cervical ripening and oxytocin for augmentation of labor. She had a slow progression and have a spontaneous precipitous vaginal delivery without complication. overnight observation was uneventful. She is afebrile hemodynamically stable day 1. Tolerating diet well. Ambulating without difficulty. She was counseled regarding pelvic rest for 6 weeks (no sex, no tampons, no vaginal douches). Return to the emergency room if any fever, increased bleeding or pain. Information Peripartum Data: Delivery Method: Vaginal Physical Exam Narrative: GA; alert and oriented x 3 HEENT: normal Breasts: engorged Nipples - skin intact Lungs; clear to auscultation Heart: regular rhythm, no murmurs. Abd: Appropriately tender. BS+. Uterine fundus below umbilicus. No Fundal Tenderness. Perineum: normal lochia. Extremities: no edema, no cyanosis, no tenderness. History History History 5 Term 3 0 Miscarriages/Ectopic 1 Living Children 3 Discharge Data Studies Completed and Pending Pending at discharge Category Date Time Status Antibody Identification Routine Lab 09/20/22 02:40 Results Complete Crossmatch Routine Lab 09/20/22 02:40 Results Rho D Immune Globulin Routine Lab 09/20/22 02:40 Results Type and Screen Routine Lab 09/20/22 02:40 Results Laboratory Results WBC 14.5 10^3/uL (4.0-10.0) H 09/21/22 17:32 RBC 3.30 10^6/uL (4.1-5.3) L 09/21/22 17:32 Hgb 10.1 g/dL (11.5-15.3) L 09/21/22 17:32 Hct 31.6 % (37.0-47.0) L 09/21/22 17:32 MCV 95.8 fl (81-99) 09/21/22 17: MCH 30.6 pg (28.0-34.0) 09/21/22 17: MCHC 32.0 g/dL (30.0-36.0) 09/21/22 17: RDW 15.4 % (12.1-15.1) H 09/21/22 17:32 Plt Count 199 10^3/cmm (130-400) 09/21/22 17: MPV 10.9 fL (7.4-10.4) H 09/21/22 17:32 Neut % (Auto) 54.3 % 09/20/22 02:40 Lymph % (Auto) 34.5 % 09/20/22 02:40 [place] % (Auto) 7.3 % 09/20/22 02:40 Eos % (Auto) 1.9 % 09/20/22 02:40 Baso % (Auto) 0.5 % 09/20/22 02:40 Neut # (Auto) 5.39 10^3/uL (1.8-7.7) 09/20/22 02:40 Lymph # (Auto) 3.4 10^3/uL (0.8-4.8) 09/20/22 02:40 [place] # (Auto) 0.7 10^3/uL (0.2-0.9) 09/20/22 02:40 Eos # (Auto) 0.2 10^3/uL (0.0-0.8) 09/20/22 02:40 Baso # (Auto) 0.1 10^3/uL (0.0-0.1) 09/20/22 02:40 Nucleated RBC % (auto) 0 % 09/20/22 02:40 Nucleated RBCs # 0.0 /100WBC 09/20/22 02:40 POC Glucose 115 mg/dL (70-110) H 09/21/22 03:07 Blood Type A Negative 09/20/22 02:40 Rho(D) Type Positive 09/20/22 02:40 Antibody Screen Positive 09/20/22 02:40 Antibody Identification Anti-D 09/20/22 02:40 Screen Negative (Negative) 09/21/22 17:32 Vitals Last Vital Signs Temp 97.7 F 09/22/22 10:10 Pulse 83 09/22/22 10:10 Resp 15 09/22/22 10:10 BP 113/77 09/22/22 10:10 Pulse Ox 91 09/21/22 03:43 O2 Del Method Room Air 09/22/22 10:10 Discharge Plan Discharge Patient Disposition: Home Condition: Stable Prescriptions: New acetaminophen 325 mg capsule 325 mg PO Q4H PRN (Reason: fever or pain) Qty: 60 0RF ferrous sulfate [Iron (ferrous sulfate)] 325 mg (65 mg iron) tablet 325 mg PO BID Qty: 60 0RF ibuprofen 800 mg tablet 800 mg PO TID PRN (Reason: pain) Qty: 60 0RF docusate sodium [Colace] 100 mg capsule 100 mg PO BID Qty: 60 0RF Continued Natavi PNV 13.5 mg iron- 0.5 mg-150 mg capsule 1 cap PO DAILY Discharge Orders: Discharge Order (Routine); Ordered 09/22/22 Ordered By: Vikas Dominguez Referrals: Vikas Dominguez MD [Physician] - 6 Weeks Shanna Montano FNP [Referring] - Discharge Diet: Usual diet Discharge Activity: Limit activity as instructed Patient Instructions: Caring for Your Baby (GEN), Bleeding (GEN), Vaginal Delivery (GEN), Your [place]'s Appearance (GEN), Opioid Safety Activity Restrictions/Additional Instructions: 1. Please call [facility] on next working day to make your appointment in 6 weeks. 2. Please stay home until you come back to the clinic on first post- hospatilization check up. 3. Please follow instructions on your medications CAREFULLY. 4. If you have abdominal incision, do not cover it unless dressing is necessary because of drainage. OK to shower, but avoid bath. Leave steri-strips until they fall off. If they are still on one week after surgery, you may remove them. 5. If you had vaginal surgery or vaginal repair, Dr. Dominguez may instruct you to take SITZ bath. 6. Yellow, blood tinged odorous vaginal discharge is usually normal after hysterectomy or vaginal surgeries. 7. No SEXUAL INTERCOURSE, tampons, or douches until you are completely released from the post-operative care. 8. Avoid constipation by eating right and maybe using some Metamucil or Milk of Magnesia. 9. All prescription refills are given during the working hours. Please do no wait till it runs out. Call the clinic at [phone] before your medication runs out. The clinic will get in touch with your doctor to prescribe medications if necessary. 10. Please remain within 40 mile radius from our hospital because emergencies do happen now and then during the post-operative period. 11. If you have stairs at home, take one step at a time slowly and minimize the number of trips. It helps to stay in one floor for the next few days. No lifting except what you can lift by one hand until you are released from the post-operative care. 12. Driving is discouraged until you are well healed. It may be 3-4 weeks before you feel strong enough to drive. You should be able to turn and look through the rear window without pain and you should be able to push the brake pedal very hard without pain before you drive. No fast rules, but SAFETY should be your primary concern. DO NOT drive if you are on sedating medications such as narcotics. 13. Call the clinic (during working hours) to make urgent appointment or go to the Emergency room, if any of the following occurs: i. Vaginal bleeding becomes heavy, more than a period. ii. Incision becomes red and sore, or drains pus. iii. Your TEMPERATURE is over 100.4F or you have chill. iv. IV site becomes red and swollen (a little ``knot?? is usually OK) v. Persistent nausea and vomiting vi. Persistent constipation or diarrhea vii. Rash or allergic reaction to medications. Discharge Attestations DIRECTOR OF IN SERVICE EDUCATION Time Spent in Discharge Care*: greater than 30 min Coding Level of Care Code Acute Code for Chg Fwd Diagnoses
[2022-09-22 12:57] VITALS: BP 107/70; PULSE 82; RESP 15; TEMP 36.7
[2022-09-22 13:00] VITALS: BP 107/70; PULSE 82; RESP 15; TEMP 36.7
== END 2022-09-22 13:45 | disposition home or self-care (01) | DRG 807 ==
LOC: OPOB 06:57 → OBGYN 06:57
PROVIDERS: Admitting Provider Obstetrics & Gynecology; PCP Nurse Practitioner Family; Visit Provider Obstetrics & Gynecology
DX: O99.42 Diseases of the circulatory system complicating childbirth (principal); Z37.0 Single live birth; R55 Syncope and collapse; O62.3 Precipitate labor; Z3A.39 39 weeks gestation of pregnancy; O99.02 Anemia complicating childbirth; O69.81X0 Labor and delivery complicated by cord around neck, without compression, not applicable or unspecified; O99.334 Smoking (tobacco) complicating childbirth; F17.210 Nicotine dependence, cigarettes, uncomplicated; D64.9 Anemia, unspecified
CPT/HCPCS: 36415; 36416; 59025; 59409; 80503; 82962; 85025; 85027; 85460; 86850; 86870; 86900; 90384; 96374; 96376; 99211; J3010; J7040; J7120; J7121